=== PATIENT | female | born 1960 | race Caucasian/White ===

== ENCOUNTER → 2016-10-01 | Outpatient (CLI) | payer OTHER ==
[~2016-10-01] MED LIST: CALC-656 PO; CRS350T PO; FLAX1CAP4 PO; GLUC-113 PO; GLUCOSAMINE PO; MULT-974 PO; OMEG1CAP51 PO; OMEP20TA2 PO; vitamines PO
--- NOTE | 2016-10-01 19:36 | Diagnostic Imaging Report ---
EXAMINATION: Bilateral digital screening mammogram with CAD. The current study was also evaluated with a Computer Aided Detection (CAD) system. INDICATION: Screening. No current complaints stated on the questionnaire. COMPARISON: 09/24/15. FINDINGS: The breasts are composed of heterogeneously dense parenchyma which may decrease mammographic sensitivity. There are benign-appearing calcifications. There is an oval asymmetry, measuring 7 mm, in the upper aspect of the right MLO view with no definite correlate on the CC projection. It has a cortical appearance on the tomographic evaluation. The left breast demonstrates no change from prior exams. IMPRESSION: 7 mm asymmetry along the upper aspect of the right MLO view. Focal compression view and ultrasound evaluation is recommended. ACR BI-RADS Category 0: Incomplete. (Needs additional imaging evaluation). Result letter will be mailed to the patient. Note: At least 10% of breast cancer is not imaged by mammography. Dictated by: Dictated on workstation # [id number]
== END ==
LOC: RAD 09:26
PROVIDERS: ATTEND Family Medicine
DX: Z12.31 Encounter for screening mammogram for malignant neoplasm of breast (principal)
CPT/HCPCS: 77067

== ENCOUNTER → 2016-10-20 | Outpatient (CLI) | payer OTHER ==
--- NOTE | 2016-10-20 20:46 | Diagnostic Imaging Report ---
EXAMINATION: Ultrasound of the right breast limited. INDICATION: Abnormal mammogram. FINDINGS: The screening mammogram performed on 10/01/2016 noted an oval asymmetry measuring 7 mm in the superior aspect of the right breast. There was no correlate on the CC view. On the diagnostic mammogram performed earlier today, there was no clear evidence for an underlying mass in this area. On this study, there is no discrete solid or cystic mass identified either. I suspect that the density seen on screening mammogram was secondary to superimposition of the dense fibroglandular tissue in the superior aspect of the right breast. Even so, it may prove worthwhile to have a short-term (6-month) follow-up mammogram and ultrasound exam of the right breast for continued study. IMPRESSION: There is no evidence of malignancy. Recommendations as above. ACR BI-RADS Category 3: Probably benign findings. Dictated by: Dictated on workstation # [id number]
--- NOTE | 2016-10-21 06:59 | Diagnostic Imaging Report ---
Unilateral diagnostic right mammogram with tomosynthesis. INDICATION: Abnormal mammogram. The screening mammogram performed on 10/01/2016, noted a 7-mm asymmetry along the superior aspect of the right breast. This finding was only seen on the MLO view with no definite correlate on the CC view. Compression views of this area IMPRESSION: Dictated on workstation # [id number]
== END ==
LOC: RAD 08:04
PROVIDERS: ATTEND Family Medicine
DX: N64.89 Other specified disorders of breast (principal)

== ENCOUNTER → 2017-10-06 | Outpatient (CLI) | payer OTHER ==
--- NOTE | 2017-10-06 10:47 | Diagnostic Imaging Report ---
Indication: Right breast density. Studies performed for followup. Correlation is made with prior mammograms from 09/24/2015, 05/18/2016 and 10/20/2016. 2-D and 3-D bilateral diagnostic mammography was performed with CAD. Scattered fibroglandular densities are identified bilaterally. Previously noted area of nodularity in the superior right breast is not seen on today's study and most likely represented superimposed tissue. No new mass is seen. No malignant appearing microcalcification is identified. There are benign cancellations bilaterally. The axilla are unremarkable. IMPRESSION: BI-RADS category 2. No mammographic features suspicious for malignancy are identified. Patient may return to routine annual screening mammography. ACR BI-RADS Category 2: Benign findings. Result letter will be mailed to the patient. Note: At least 10% of breast cancer is not imaged by mammography. Dictated by: Dictated on workstation # [id number]
== END ==
LOC: RAD 09:34
PROVIDERS: ATTEND Family Medicine
DX: R92.2 Inconclusive mammogram (principal)
CPT/HCPCS: 77066

== ENCOUNTER → 2018-10-11 | Outpatient (CLI) | payer OTHER ==
--- NOTE | 2018-10-11 14:28 | Diagnostic Imaging Report ---
INDICATION: Routine screening. COMPARISON: 10/06/2017 and 10/01/2016. TECHNIQUE: 2D and 3D bilateral screening mammography was performed with CAD. FINDINGS: Both breasts are heterogeneously dense, limiting the sensitivity of mammography. An intramammary lymph node in the outer portion of the left breast appears stable. The overall parenchymal pattern appears stable. No new mass or malignant appearing microcalcifications are seen. The axillae are unremarkable. IMPRESSION: No mammographic features suspicious for malignancy are identified. ACR BI-RADS Category 2: Benign findings. Result letter will be mailed to the patient. Note: At least 10% of breast cancer is not imaged by mammography. Dictated by: Dictated on workstation # [id number]
== END ==
LOC: RAD 09:17
PROVIDERS: ATTEND Family Medicine
DX: Z12.31 Encounter for screening mammogram for malignant neoplasm of breast (principal)
CPT/HCPCS: 77067

== ENCOUNTER → 2019-10-17 | Outpatient (CLI) | payer OTHER ==
--- NOTE | 2019-10-17 12:59 | Diagnostic Imaging Report ---
INDICATION: Routine screening. COMPARISON: 10/11/2018 and 10/06/2017. TECHNIQUE: 2D and 3D bilateral screening mammography was performed with CAD. FINDINGS: Both breasts are heterogeneously dense, limiting the sensitivity of mammography. The benign nodule in the upper outer left breast is stable. No spiculated mass or malignant appearing microcalcifications are seen. The axillae are unremarkable. IMPRESSION: No mammographic features suspicious for malignancy are identified. ACR BI-RADS Category 2: Benign findings. Result letter will be mailed to the patient. Note: At least 10% of breast cancer is not imaged by mammography. Dictated by: Dictated on workstation # [id number]
== END ==
LOC: RAD 09:31
PROVIDERS: ATTEND Family Medicine
DX: Z12.31 Encounter for screening mammogram for malignant neoplasm of breast (principal)
CPT/HCPCS: 77063; 77067

== ENCOUNTER → 2020-10-22 | Outpatient (CLI) | payer OTHER ==
--- NOTE | 2020-10-22 12:33 | Diagnostic Imaging Report ---
Indication: Routine screening. Correlation is made with prior mammogram 10/17/2019 and 10/11/2018. 2-D and 3-D bilateral screening mammography was performed with CAD. Both breasts are heterogeneously dense, limiting the sensitivity of mammography. A benign nodule upper outer left breast is stable. No new masses detected. No malignant-appearing microcalcifications are seen. Axillae are unremarkable. IMPRESSION: BI-RADS Category 2 No mammographic features suspicious for malignancy are identified. ACR BI-RADS Category 2: Benign findings. Result letter will be mailed to the patient. Note: At least 10% of breast cancer is not imaged by mammography. Dictated by: Dictated on workstation # [id number]
== END ==
LOC: RAD 08:15
PROVIDERS: ATTEND Family Medicine
DX: Z12.31 Encounter for screening mammogram for malignant neoplasm of breast (principal)
CPT/HCPCS: 77063; 77067

== ENCOUNTER → 2021-10-28 | Outpatient (CLI) | payer OTHER ==
--- NOTE | 2021-10-28 14:15 | Diagnostic Imaging Report ---
Indication: Routine screening. Comparison is made with prior mammogram 10/22/2020 and 10/17/2019. 2-D and 3-D bilateral screening mammography was performed with CAD. CAD is utilized. The current study was also evaluated with a Computer Aided Detection (CAD) system. Both breasts are heterogeneously dense, limiting the sensitivity of mammography. Benign nodule outer left breast is stable. No spiculated mass or malignant-appearing microcalcifications are seen. Axillae are unremarkable. IMPRESSION: BI-RADS Category 2 No mammographic features suspicious for malignancy are identified. ACR BI-RADS Category 2: Benign findings. Result letter will be mailed to the patient. Note: At least 10% of breast cancer is not imaged by mammography. Dictated by: Dictated on workstation # [id number]
== END ==
LOC: RAD 09:20
PROVIDERS: ATTEND Family Medicine
DX: Z12.31 Encounter for screening mammogram for malignant neoplasm of breast (principal)
CPT/HCPCS: 77063; 77067

== ENCOUNTER 2021-11-13 05:36 | Outpatient (CLI) | payer OTHER ==
[~2021-11-13] VITALS: Ht 167.6 cm; Wt 67.6 kg
[2021-11-13] MEDS ORDERED: KRIL1CAP PO (11:46)
[2021-11-13] MEDS ORDERED: ASCO500C17 PO (11:46)
[2021-11-13] MEDS ORDERED: CHOL400T29 PO (11:46)
== END 2021-11-13 11:51 | disposition home or self-care (01) ==
LOC: PREOP 05:36
PROVIDERS: ATTEND Surgery
DX: Z01.818 Encounter for other preprocedural examination (principal)

== ENCOUNTER 2021-11-21 08:21 | Day surgery (SDC) | payer OTHER ==
--- NOTE | 2021-11-12 17:50 | HISTORY AND PHYSICAL ---
DATE OF SERVICE: COLONOSCOPY SUMMARY HISTORY OF PRESENT ILLNESS: The patient is a 60-year-old white female referred for screening colonoscopy. She had one other screening colonoscopy performed 10 years ago that was unremarkable. She denies melena or bright red blood per rectum, has had no change in weight and denies any family history for colon cancer. PAST MEDICAL HISTORY: Noncontributory. She is taking no prescription medication. PAST SURGICAL HISTORY: Significant for exploratory laparotomy for infertility in 1998. No other surgeries reported. SOCIAL HISTORY: She is employed as a nurse. No past smoking history and no significant alcohol intake. FAMILY HISTORY: Father in a motor vehicle accident at the age of 50. Mother, I believe is still living around the age of 88. She had one grandmother who was diagnosed with colon cancer in her 60s, has one sister living with hypertension. REVIEW OF SYSTEMS: CONSTITUTIONAL: Denies night sweats, chills, fever, change in weight. GASTROINTESTINAL: As noted in the HPI. PULMONARY: Denies cough, wheezing or shortness of breath. CARDIOVASCULAR: Denies chest discomfort, dyspnea with regular exertion or palpitation. PHYSICAL EXAMINATION: GENERAL: Reveals a white female, appears to be in no acute distress. VITAL SIGNS: Weight 149.8 pounds, blood pressure 120/80. HEENT: Unremarkable. CHEST: Clear to auscultation. CARDIOVASCULAR: Reveals regular rate and rhythm without murmur, S3 or S4. ABDOMEN: Soft, supple without mass, organomegaly or tenderness. EXTREMITIES: Reveal no cyanosis, clubbing or edema. ASSESSMENT AND PLAN: The patient is being set up for screening colonoscopy. Does have a grandmother who was diagnosed with colon cancer at the age of 60. Prep instructions were given. Electronic medical record was reviewed and questions were answered. I thank you for the referral of this pleasant lady. Job ID: [id number] DocumentID: [id number] Dictated Date: 11/12/2021 17:27:11 Budget Engineer Date: 11/12/2021 17:49:59 Dictated By: GEORGE CORDOBA MD
[~2021-11-21] VITALS: Ht 168 cm; Wt 67.6 kg
[~2021-11-21 08:21] MED LIST changes: +ASCO500C17 PO; +CHOL400T29 PO; +KRIL1CAP PO
[2021-11-21] MEDS ORDERED: LACTATED RINGERS 1,000 ML IV STA (08:22)
--- NOTE | 2021-11-21 08:31 | Pre-Op Note & Conscious Sedat ---
Pre-Operative Progress Note Date H&P Reviewed: Nov 21, 2021 Time H&P Reviewed: 08:30 History & Physical: H&P Reviewed, Patient Examed, No changes noted Pre-Op Diagnosis: screening Conscious Sedation Pre-Proced ASA Score 1 For ASA 3 and 4: Consider anesthesia and medical clearance. Also, for patients with a history of failed moderate sedation consider anesthesia. Airway Lungs Heart ASA score ASA 1: a normal healthy patient ASA 2: a patient with a mild systemic disease (mid diabetes, controlled hypertension, obesity ASA 3: a patient with a severe systemic disease that limits activity (angina, COPD, prior Myocardial infarction) ASA 4: a patient with an incapacitating disease that is a constant threat to life (CHF, renal failure) ASA 5: a moribund patient not expected to survive 24 hrs. (ruptured aneurysm) ASA 6: a declared brain- patient whose organs are being harvested. For emergent operations, add the letter E after the classification Mallampati Classification Grade 2 Sedation Plan Analgesia, Amnesia, Plan communicated to team members, Discussed options with patient/fam, Discussed risks with patient/fam The patient is an appropriate candidate to undergo the planned procedure, sedation, and anesthesia. The patient immediately re-assessed prior to indication. GEORGE CORDOBA MD Nov 21, 2021 08:31
[2021-11-21 08:40] VITALS: BP 123/73
[2021-11-21] MEDS ORDERED: MIDAZOLAM 2 MG/2 ML (VERSED) VIAL ONE (09:25)
[2021-11-21] MEDS ORDERED: PROPOFOL INJECTION 50 ML IV ONE (09:25)
--- NOTE | 2021-11-21 09:53 | Progress Note-Post Operative ---
Post-Procedure Note Physician (s)/Senior Internet Sales Consultant (s) Physician GEORGE CORDOBA MD Pre-Procedure Diagnosis Pre-Procedure Diagnosis: screening Post-Procedure Diagnosis Post-operative diagnosis: one 3mm sessile polyp prox ascending cauterized otherwise normal colon. GEORGE CORDOBA MD Nov 21, 2021 09:53
[2021-11-21 09:57] VITALS: BP 109/56
[2021-11-21 10:02] VITALS: BP 96/51
[2021-11-21 10:05] VITALS: BP 101/55
[2021-11-21 10:29] VITALS: BP 105/59
--- NOTE | 2021-11-21 12:40 | Anesthesia-General Post-Op ---
MAC Patient Condition Mental Status/LOC: Same as Preop Cardiovascular: Satisfactory Nausea/Vomiting: Absent Respiratory: Satisfactory Pain: Controlled Complications: Absent Post Op Complications Complications None Follow Up Care/Instructions Patient Instructions None needed. Anesthesiology Discharge Order Discharge Order Patient is doing well, no complaints, stable vital signs, no apparent adverse anesthesia problems. No complications reported per nursing. MOLLY CALZADA CRNA Nov 21, 2021 12:40
--- NOTE | 2021-11-21 15:47 | OPERATIVE REPORT ---
DATE OF SERVICE: COLONOSCOPY SUMMARY INDICATION FOR THE PROCEDURE: Screening colonoscopy. The patient was placed in the left lateral decubitus position. Prior to undergoing colonoscopy, digital rectal evaluation was performed. Anal sphincter tone was normal and the perianal reflex was intact. No abnormalities were noted on digital inspection of anal canal or distal rectal vault. The colonoscope was then inserted into the rectum and under direct visualization advanced to the cecum. The cecum was identified by identification of the ileocecal valve and cecal strap. Photographic documentation was obtained. A careful inspection was made as the colonoscope withdrawn. Quality of the prep was good. FINDINGS: No evidence for internal or external hemorrhoids and the rectum, sigmoid colon, descending colon, splenic flexure, transverse colon, and hepatic flexure were unremarkable. There is questionable sessile polyp in the proximal ascending colon that was biopsied and ablated with no blood loss. The cecum was unremarkable. ASSESSMENT: One questionable sessile polyp 3 to 4 mm in size noted and subsequently ablated from the proximal ascending colon with otherwise normal colonoscopy to the cecum under good prep conditions. We would advocate consideration for a repeat screening colonoscopy in 10 years. I thank you for the referral of this pleasant lady. Job ID: [id number] DocumentID: [id number] Dictated Date: 11/21/2021 09:58:35 Territory Outside Sales Manager Date: 11/21/2021 15:47:36 Dictated By: GEORGE CORDOBA MD
== END 2021-11-21 10:40 | disposition home or self-care (01) ==
LOC: ENDO 08:21
PROVIDERS: ATTEND Internal Medicine
DX: Z12.11 Encounter for screening for malignant neoplasm of colon (principal); D12.2 Benign neoplasm of ascending colon

== ENCOUNTER → 2022-11-06 | Outpatient (CLI) | payer OTHER ==
--- NOTE | 2022-11-06 12:17 | Diagnostic Imaging Report ---
Indication: Routine screening. Comparison is made with prior mammograms 10/28/2021 and 10/22/2020. 2-D and 3-D bilateral screening mammography was performed with CAD. Both breasts are heterogeneously dense, limiting the sensitivity of mammography. A benign nodule upper outer left breast is stable. No new mass or malignant-appearing microcalcifications are identified. Axillae are unremarkable. IMPRESSION: BI-RADS Category 2 No mammographic features suspicious for malignancy are identified. ACR BI-RADS Category 2: Benign findings. Result letter will be mailed to the patient. Note: At least 10% of breast cancer is not imaged by mammography. Dictated by: Dictated on workstation # [id number]
== END ==
LOC: RAD 09:23
PROVIDERS: ATTEND Family Medicine
DX: Z12.31 Encounter for screening mammogram for malignant neoplasm of breast (principal)
CPT/HCPCS: 77063; 77067